=== PATIENT | female | born 1985 | race Caucasian/White ===

== ENCOUNTER 2017-08-23 10:52 | Inpatient (IN) | payer OTHER ==
[2017-08-23] VITALS (9 sets, daily range): BP systolic 109–150; BP diastolic 63–81; PULSE 94–116; RESP 18–20; TEMP 97.2–98.8; O2SAT 97–100
--- NOTE | 2017-08-23 11:23 | PD ---
HPI Chief Complaint Vaginal bleeding Date Seen: Aug 23, 2017 Time Seen: 11:18 Travel History International Travel<30 Days: No Contact w/Intl Traveler<30Days: No Known Affected Area: No History of Present Illness HPI 31-year-old at 33 weeks and 5 days, patient of Dr. Mila Walton complains of heavy vaginal bleeding at home that she noticed in the toilet that occurred spontaneously in a fairly large amounts. Patient states that she discharge quite a few vaginal blood clots into the toilet and that she continue to bleed on a towel and on her bed until [facility] came and patient continued to bleed in the [facility] ambulance. Patient states that she's had normal movement today and denies any complications. She has had 2 prior spontaneous vaginal deliveries and 2 prior abortions. Denies any bleeding during this her last ultrasound was a 3-D ultrasound performed 4 weeks ago with no abnormalities but it was not performed at [facility]. Last 2 ultrasound for was done approximately 20 weeks when she found out the gender. Patient states that she is feeling a little bit of cramping in the lower portion of her belly but otherwise denies pain denies abdominal trauma patient denies use of cocaine or any other illicit drugs. She is a cigarette smoker. Weeks Gestation: 33 (33.5) Para: 2 : 5 : 2 History Past Medical History Medical History: Denies Significant Hx Obstetric History Obstetric History Spontaneous vaginal delivery 2 Past Surgical History Surgical History: No Previous Surgery Family History Family History: Negative Social History Alcohol Use: No Tobacco Use: Yes Substance Abuse: No Review of Systems Except as stated in HPI: all other systems reviewed are Neg Physical Exam Narrative GENERAL: Well-nourished, well-developed patient. SKIN: Warm and dry. HEAD: Normocephalic and atraumatic. EYES: No scleral icterus. No injection or drainage. ENT: No nasal drainage noted. Mucous membranes pink. Airway patent. NECK: Supple, trachea midline. No JVD. CARDIOVASCULAR: Regular rate and rhythm without murmurs, gallops, or rubs. RESPIRATORY: Breath sounds equal bilaterally. No accessory muscle use. BREASTS: Bilateral exam showed no masses , no retractions, no nipple discharge. ABDOMEN/GI: Abdomen soft, non-tender, bowel sounds present, no rebound, no guarding Gravid to [-33] weeks size Fundal Height: [-] Bedside ultrasound reveals a backup transverse lie with a posterior placenta no obvious previa is noted but I cannot rule out a lobe of placenta at the apex of the cervix. Blot clots are seen in the lower segment superior to the cervix. heart rate is approximately 150 GENITOURINARY: External Genitalia: intact and normal in appearance BUS glands: [-Normal] Cervix: [2 cm-] large amount of blood and blood clot in the vagina which was cleared with a small amount of bleeding coming from the cervical os. Dilatation: [-] Effacement: [-] Station: [-] Presentation: [-] Transverse Membranes: [intact] Uterine Contractions: [-Occasional] FHT's: Category: [1-] Baseline: [-] 150 Reactive: [-] Moderate Variability: [-] Moderate Decels: [-] Absent EXTREMITIES: No cyanosis or edema. BACK: Nontender without obvious deformity. No CVA tenderness. NEUROLOGICAL: Awake and alert. Motor and sensory grossly within normal limits. Five out of 5 muscle strength in all muscle groups. Normal speech. Data Data Vital Signs Reviewed: Yes Orders Orders Admit To Inpatient (08/23/17 ) Vital Signs (Adult) .ON ADMISSION (08/23/17 11:08) Activity Oob Ad Soo (08/23/17 11:08) Heart (08/23/17 11:08) ^ Preps (08/23/17 11:08) Ob/Psych Drug Screen, Urine (08/23/17 11:08) Admit To Inpatient (08/23/17 ) Vital Signs (Adult) .ON ADMISSION (08/23/17 11:08) Activity Oob Ad Soo (08/23/17 11:08) Heart (08/23/17 11:08) Urinary Catheter Management NICA.Q8H (08/23/17 11:08) ^ Preps (08/23/17 11:08) Scd / Aris / Foot Pump NICA.QSHIFT (08/23/17 11:08) ^ Ultrasound For Locatio (08/23/17 11:08) Diet Npo (08/23/17 Lunch) Type And Screen (08/23/17 11:08) Complete Blood Count With Diff (08/23/17 11:08) Urinalysis - C+S If Indicated (08/23/17 11:08) [facility] Medical Record Reviewed: Yes Plan 31-year-old who is at 33 weeks 5 days comes in with profuse vaginal bleeding. Suspect previa. Backup transverse lie as noted if bleeding were to continue patient stands that we would perform a section. She understands possibilities of transfusion anesthetic risk risk of surgery with C- section including infection bleeding injury to the bowel the bladder or the ureters. Diagnosis Diagnosis: Primary Impression: 33 weeks gestation of Additional Impression: Vaginal bleeding during , antepartum Agata Escalera MD Aug 23, 2017 11:23
[2017-08-23] MEDS ORDERED: LACTATED RINGER'S 1000 ML INJ 1,000 ML IV ONE (11:25)
[2017-08-23 11:33] LABS: AUTOMATED NEUTROPHIL # 10.3 TH/MM3 (1.8-7.7); BASOPHIL % 0.2 % (0.0-2.0); EOSINOPHIL # 0.2 TH/MM3 (0-0.4); EOSINOPHIL % 1.1 % (0.0-4.0); HEMATOCRIT 34.3 % (35.0-46.0); HEMO FLAGS DIFF FINAL; LYMPH % 22.5 % (9.0-44.0); LYMPHOCYTE # 3.4 TH/MM3 (1.0-4.8); MEAN CORPUSCULAR HEMOGLOBIN 32.5 PG (27.0-34.0); MEAN CORPUSCULAR HGB CONC 33.8 % (32.0-36.0); MONO % 6.7 % (0.0-8.0); NEUT % 69.5 % (16.0-70.0); PLATELET COUNT 281 TH/MM3 (150-450); RED BLOOD COUNT 3.57 MIL/MM3 (4.00-5.30); RED CELL DISTRIBUTION WIDTH 12.7 % (11.6-17.2); WHITE BLOOD COUNT 14.9 TH/MM3 (4.0-11.0)
[2017-08-23] MEDS ORDERED: ceFAZolin INJ 1,000 MG VIAL ONE (11:42)
--- NOTE | 2017-08-23 12:12 | PD.OB.DELI ---
Procedure Note Section Procedure Pre Op Diagnosis: (1) 33 weeks gestation of (2) Vaginal bleeding during , antepartum Post Op Diagnosis: (1) Placenta abruption, delivered, current hospitalization Performed by Agata Escalera Procedure: Primary Low Transverse Sec Indication for delivery: Other (placenta abruption with vaginal bleeding) Previous condition: None Informed consent obtained: For anesthesia, For procedure Confirmed correct: Patient, Procedure, Site Anesthesia: Other (geta) Medication prior to procedure: As documented in eMAR, Antibiotics, IV Urinary catheter: To dependent drainage Sterile preparation: With 10% povidone iodine (Betadine) Position: Supine with wedge to left side Operative Features Skin Incision: Pfannenstiel Uterine Incision: Low transverse w/knife / blunt ext Membranes Ruptured: Artificially, Appearance of fluid (clear) Presentation: Transverse lie Delivery date: Aug 23, 2017 Delivery time: 11:35 Delivery of : Uneventful Infant: Male One Minute : 8 Five Minute : 8 Weight: 2280gm Status of : Viable Placenta delivered: Sent to pathology, Other (80% abruption with entire lower portion of placenta ) Estimated blood loss: 1000cc clot 400cc intraop bleeding Procedure tolerated: Well Maternal Condition: Stable Condition: Stable Agata Escalera MD Aug 23, 2017 12:12
[2017-08-23] MEDS ORDERED: HYDROmorphone HCL PCA 6 MG/30 ML IV SCH (12:15)
[2017-08-23] MEDS ORDERED: ACETAMINOPHEN 1000 MG/100 ML 100 ML IV ONE (12:15)
[2017-08-23] MEDS ORDERED: SODIUM CHLORIDE 0.9% FLUSH 10 ML FLUSH IV FLUSH PRN (12:15)
[2017-08-23] MEDS ORDERED: NALOXONE HCL 0.4 MG/ML AMP IV PUSH PRN (12:15)
[2017-08-23] MEDS ORDERED: ONDANSETRON HCL 4 MG/2 ML VIAL IV PUSH PRN (12:15)
[2017-08-23] MEDS ORDERED: SIMETHICONE 80 MG CHEWABLE TAB PO PRN (12:15)
[2017-08-23] MEDS ORDERED: oxyCODONE/ACETAMINOPHEN 5 MG/325 MG TAB PO PRN (12:15)
[2017-08-23] MEDS ORDERED: OXYTOCIN 30 UNITS-500ML PREMIX 500 ML IV ONE (12:15)
[2017-08-23] MEDS ORDERED: HYDROmorphone HCL PF 2 MG/ML VIAL ONE (12:21)
[2017-08-23] MEDS ORDERED: ceFAZolin 2 GM PREMIX 50 ML IV SCH (12:30)
[2017-08-23 12:31] LABS: BLOOD GAS BASE EXCESS -1.4 mmol/L (-2-2); BLOOD GAS O2 HGB SATURATION 27 % (90-100); CORD BLOOD GAS HCO3 24 mmol/L (21-29); CORD BLOOD GAS PCO2 48 mmHG (34-78); CORD BLOOD GAS PH 7.32 (7.14-7.42); CORD BLOOD GAS PO2 15 mmHG (3.0-40.0); DRAW SITE CORD BLOOD; STAT YES
[2017-08-23] MEDS ORDERED: KETOROLAC TROMETHAMINE 60 MG/2 ML (IM) VIAL IM ONE (12:35)
[2017-08-23] MEDS ORDERED: HYDROmorphone HCL PCA 6 MG/30 ML IV ONE (12:35)
[2017-08-23 12:36] LABS: BLOOD, URINE TRACE (NEG); GLUCOSE,URINE NEG (NEG); KETONE, URINE NEG (NEG); NITRITE,URINE NEG (NEG); PH, URINE 6.5 (5.0-8.5); URINE COLOR YELLOW (YELLW/STRAW)
--- NOTE | 2017-08-23 12:38 | MP ---
cc: KHADRA VU M.D. DATE OF SURGERY: 08/23/2017. PREOPERATIVE DIAGNOSIS: 1. 33 weeks gestation. 2. Vaginal bleeding during . POSTOPERATIVE DIAGNOSIS: Placental abruption, delivered. OPERATIVE PROCEDURE PERFORMED: Primary low transverse section without extension. SURGEON: Khadra Vu MD. ESTIMATED BLOOD LOSS: 1000 cc both prior to the surgery and in blood clots that were seen at the time of surgery plus 500 cc of intraoperative blood loss. ANESTHESIA: General endotracheal anesthesia. COMPLICATIONS: No complications. DRAINS: Cuello catheter to gravity. PATHOLOGY: Placenta. MEDICATIONS: Ancef 2 grams was given intraoperatively. FINDINGS: 1. Normal uterus, tubes and ovaries. 2. Copious amounts of blood and clot material in the lower uterine segment with a 90% abruption of the placenta, which was still attached at the apex posteriorly. 4. Baby was in the back up transverse lie. Apgars were 8 and 8. Male weighing 2280 grams, which is 5 pounds and a 45-second cord clamping delay was performed. 5. Good hemostasis noted after the case. DESCRIPTION OF THE PROCEDURE IN DETAIL: The patient was taken back to the operating room and prepped and draped in the usual sterile fashion and placed in the dorsal supine position with a wedge to her left side. After adequate anesthetic was obtained, a transverse Pfannenstiel's incision was made in the skin and taken through the fascia. The fascia was nicked in the midline and extended bilaterally and taken off the rectus muscles. The muscles were divided in the midline. Anterior peritoneum was entered. A transverse hysterotomy incision was made bluntly, extended and clear amniotic fluid was obtained. The infant was delivered breech as it was in a back up transverse lie and using clockwise and counter-clockwise rotation, the upper extremities were delivered and using fundal pressure the head was flexed and then also delivered. The anatomic pathology assistant and the resuscitation team was present and a 45-second cord clamping delay. the placenta was completely detached by the end of the 45 seconds was noted and the endometrial cavity was curetted with a moist laparotomy sponge. The hysterotomy was repaired using a running locking #1 chromic suture with good hemostasis and closure. Gutters were rendered free of all blood and clot material and the peritoneum was closed with a running suture of 2-0 Vicryl and #1 PDS was used to close the fascia and a subcuticular suture of 3-0 Monocryl and was placed in the skin. The patient tolerated the procedure well. She was taken back to the recovery room in good condition. MD AYSE Whittington/DARLING /12:20 PM /12:33 PM
[2017-08-23 12:54] LABS: BACTERIA, URINE RARE /hpf; COMMENT (UR) CULT NOT INDICATED; CULTURE IF INDICATED CULT NOT INDICATED; SQUAMOUS EPITHELIAL CELL URINE 0-5 /hpf (0-5); WBC, URINE 0-2 /hpf (0-5)
--- NOTE | 2017-08-23 12:56 | RADRPT ---
EXAM DATE/TIME: 08/23/2017 12:17 [place] COMPARISON: No previous studies available for comparison. INDICATIONS : Instrument Count MEDICAL HISTORY : None. SURGICAL HISTORY : None. ENCOUNTER: Initial ACUITY: 1 day PAIN SCORE: Non-responsive. LOCATION: Bilateral abdomen FINDINGS: 2 AP supine views of the abdomen. No metallic foreign body identified. Scattered gas in nondilated sm all bowel. Scattered gas in nondilated colon. Osseous structures within normal limits. No abnormal ab dominal calcification. CONCLUSION: No metallic foreign body identified. Claudio Sharma MD on August 23, 2017 at 12:50 Board Certified Radiologist. This report was verified electronically.
[2017-08-23] MEDS ORDERED: CITRIC ACID-SODIUM CITRATE LIQ 30 ML UDC PO SCH (13:00)
[2017-08-23 15:37] LABS: HEMATOCRIT 34.9 % (35.0-46.0); REVIEW FLAG FINAL
[2017-08-23 16:24] LABS: RUBELLA IGG ANTIBODY 73.2 IU/mL (10.0-500.0); RUBELLA STATUS IMMUNE (IMMUNE)
[2017-08-23] MEDS ORDERED: LACTATED RINGER'S 1000 ML INJ 1,000 ML IV SCH (17:06)
[2017-08-23] MEDS: LACTATED RINGER'S 1000 ML INJ 1,000 ML IV SCH ×3 (18:35→22:54)
[2017-08-23] MEDS: NICOTINE 14 MG/24 HR PATCH T-DERMAL SCH (21:00)
[2017-08-23] MEDS ORDERED: REMOVE OLD PATCH T-DERMAL SCH (21:00)
[2017-08-23] MEDS: SODIUM CHLORIDE 0.9% FLUSH 10 ML FLUSH IV FLUSH SCH (21:00)
[2017-08-23] MEDS: PCA - TOTAL MG DILAUDID DELIVERED PER SHIFT OTHER SCH (22:00)
[2017-08-23] MEDS ORDERED: OXYTOCIN 30 UNITS-500ML PREMIX 500 ML IV PRN (22:15)
[2017-08-24 00:46] VITALS: RESP 20
[2017-08-24] MEDS: IBUPROFEN 600 MG TAB PO PRN ×4 (00:46→22:02)
[2017-08-24] MEDS: oxyCODONE/ACETAMINOPHEN 5 MG/325 MG TAB PO PRN ×6 (00:46→22:02)
[2017-08-24 01:00] VITALS: RESP 20
[2017-08-24 04:15] VITALS: BP 118/60; PULSE 93; RESP 18; TEMP 98
[2017-08-24] MEDS: LACTATED RINGER'S 1000 ML INJ 1,000 ML IV SCH ×2 (07:55→14:35)
[2017-08-24] MEDS: NICOTINE 14 MG/24 HR PATCH T-DERMAL SCH (08:29)
[2017-08-24] MEDS ORDERED: guaiFENesin/DEXTROMETHORPHAN 200 MG/20 MG/10 ML CUP PO PRN (08:30)
[2017-08-24 08:31] VITALS: PULSE 112; TEMP 98.6
--- NOTE | 2017-08-24 08:38 | HHI.OB ---
Subjective Post Operative Day: 1 Remarks Patient is a 31-year-old delivered at 33 weeks and 6 days. Patient is postop day 1 after emergent for placental abruption. Patient's pain is well-controlled except when she coughs. Patient reports eating and drinking without any nausea or vomiting. Patient reports minimal bleeding. Patient has passed gas but no bowel movements. Patient is walking without lower extremity pain or shortness of breath. Patient reports desire for contraception and breast -feeding. Objective Vitals/I&O Vital Signs Date Time Temp Pulse Resp B/P (MAP) Pulse Ox O2 Delivery O2 Flow Rate FiO2 08/24/17 04:15 98.0 93 18 118/60 (79) 08/24/17 01:00 20 08/24/17 00:46 20 08/23/17 22:00 18 08/23/17 19:45 98.2 95 18 109/63 (78) 97 08/23/17 19:45 98.1 08/23/17 15:25 97.8 18 08/23/17 13:54 97.2 08/23/17 13:49 95 20 100 08/23/17 13:49 150/81 (104) 08/23/17 13:45 18 08/23/17 12:36 97.9 94 18 99 08/23/17 11:25 116 08/23/17 11:19 98.8 08/23/17 11:15 113 08/23/17 11:10 116 Result Diagram: 08/23/17 1500 Objective Remarks GENERAL: Well-nourished, well-developed patient. CARDIOVASCULAR: Regular rate and rhythm without murmurs, gallops, or rubs. RESPIRATORY: Breath sounds equal bilaterally. No accessory muscle use. ABDOMEN/GI: Abdomen soft, non-tender, bowel sounds present. Incision: Clean, dry and intact. Fundus: Firm, non-tender at umbilicus. GENITOURINARY: Light to moderate bleeding. EXTREMITIES: No cyanosis or edema, non-tender, without signs of DVT. Medications and IVs Current Medications Medications (Trade) Dose Ordered Sig/Etta Route Start Time Stop Time Status Last Admin Lactated Ringer's 1,000 ml @ 150 mls/hr Q6H40M IV 08/23/17 11:55 Cefazolin Sodium/ Dextrose 50 ml @ 100 mls/hr HAND FORMER IV 08/23/17 12:30 08/27/17 12:29 (Bicitra Liq) 30 ml HAND FORMER PO 08/23/17 13:00 08/27/17 12:59 Lactated Ringer's 1,000 ml @ 100 mls/hr Q10H IV 08/23/17 17:06 08/24/17 13:05 08/23/17 20:30 Oxytocin 500 ml @ 100 mls/hr UNSCH X1 PRN IV 08/23/17 22:15 08/24/17 22:14 (NS Flush) 2 ml BID IV FLUSH 08/23/17 21:00 (NS Flush) 2 ml UNSCH PRN IV FLUSH 08/23/17 12:15 (Mylicon Chew) 80 mg QID PRN PO 08/23/17 12:15 (Motrin) 600 mg Q6H PRN PO 08/23/17 12:15 08/24/17 06:36 (Percocet 5-325 Mg) 1 tab Q4H PRN PO 08/23/17 12:15 (Percocet 5-325 Mg) 2 tab Q4H PRN PO 08/23/17 12:15 08/24/17 08:27 (M-M-R Ii Inj) 0.5 ml ONCE ONCE SQ 08/24/17 16:00 08/24/17 16:01 (Boostrix Inj) 0.5 ml ONCE ONCE IM 08/24/17 16:00 08/24/17 16:01 (Zofran Inj) 4 mg Q6H PRN IV PUSH 08/23/17 12:15 (Narcan Inj) 0.4 mg UNSCH PRN IV PUSH 08/23/17 12:15 (Dilaudid INSEAM LEVELER Inj) 6 mg UNSCH IV 08/23/17 12:15 08/23/17 13:45 INSEAM LEVELER Dosage Infused (Pha) 1 Q8HR OTHER 08/23/17 14:00 08/23/17 22:00 (Habitrol 14 Mg Patch.24 Hr) 1 patch DAILY T-DERMAL 08/23/17 21:00 Miscellaneous Information 1 HS T-DERMAL 08/23/17 21:00 (Robitussin Dm 200-20 Mg/10 ml Liq) 10 ml Q4H PRN PO 08/24/17 08:30 UNV Assessment/Plan Assessment and Plan Patient is a 31-year-old delivered at 33 weeks and 6 days. Patient is postop day 1 after emergent for placental abruption. Patient was counseled to do 6 weeks of pelvic rest. Patient was counseled to follow up in 1 and 6 weeks. Patient requested follow-up and contraception. 1. routine postop management --AF VSS --Continue routine care --Motrin and Percocet when necessary for pain --Encourage OOB --Pelvic rest for 6 weeks will need follow-up appointment at that time. --Contraception: Depo-Provera --Anticipate discharge in 1-2 days 2. cough --Guaifenesin and dextromethorphan by mouth when necessary --Tessalon Perles if ineffective d/w Dr. Escalera Discharge Planning --Anticipate discharge in 1-2 days Sam Villa MD R2 Aug 24, 2017 08:38
[2017-08-24 08:45] VITALS: RESP 18
[2017-08-24] MEDS: SODIUM CHLORIDE 0.9% FLUSH 10 ML FLUSH IV FLUSH SCH (09:00)
[2017-08-24] MEDS ORDERED: medroxyPROGESTERone ACETATE SUSP 150 MG/ML SYRINGE IM ONE (09:15)
[2017-08-24 11:54] LABS: HEMATOCRIT 31.8 % (35.0-46.0); MEAN CELL VOLUME 98.3 FL (80.0-100.0); MEAN CORPUSCULAR HEMOGLOBIN 32.5 PG (27.0-34.0); PLATELET COUNT 232 TH/MM3 (150-450); RED BLOOD COUNT 3.24 MIL/MM3 (4.00-5.30); RED CELL DISTRIBUTION WIDTH 12.7 % (11.6-17.2); REVIEW FLAG FINAL
[2017-08-24] MEDS: PCA - TOTAL MG DILAUDID DELIVERED PER SHIFT OTHER SCH (14:00)
[2017-08-24] MEDS: RESP: IPRATROPIUM 0.5 MG/2.5 ML NEB NEB PRN ×2 (14:53→20:15)
[2017-08-24] MEDS ORDERED: DIPHTH/TETANUS/ACEL PERTUSSIS (BOOSTER) 0.5 ML VIAL/PFS IM ONE (16:00)
[2017-08-24] MEDS ORDERED: MEASLES, MUMPS, RUBELLA VACCINE 0.5 ML VIAL SQ ONE (16:00)
[2017-08-24 20:00] VITALS: BP 124/54; PULSE 117; RESP 22; TEMP 98.2
[2017-08-25] MEDS: oxyCODONE/ACETAMINOPHEN 5 MG/325 MG TAB PO PRN ×2 (02:50→09:46)
[2017-08-25 08:00] VITALS: BP 115/64; PULSE 106; RESP 16; TEMP 98.3; O2SAT 98
[2017-08-25] MEDS: RESP: IPRATROPIUM 0.5 MG/2.5 ML NEB NEB PRN (08:03)
[2017-08-25] MEDS: PCA - TOTAL MG DILAUDID DELIVERED PER SHIFT OTHER SCH (08:17)
--- NOTE | 2017-08-25 09:20 | HHI.OB ---
Subjective Post Operative Day: 2 Remarks Patient is a 31-year-old delivered at 33 weeks and 6 days. Patient is postop day 1 after emergent for placental abruption. Patient's pain is well-controlled. Patient reports eating and drinking without any nausea or vomiting. She does report some nausea with breathing treatments and Percocet. She reports that the breathing treatments help with her cough. Patient reports minimal bleeding. Patient has passed gas and bowel movements. Patient is walking without lower extremity pain or shortness of breath. Patient reports desire for contraception. Objective Vitals/I&O Vital Signs Date Time Temp Pulse Resp B/P (MAP) Pulse Ox O2 Delivery O2 Flow Rate FiO2 08/25/17 08:00 98.3 106 16 115/64 (81) 98 08/24/17 20:00 98.2 117 22 124/54 (77) Result Diagram: 08/24/17 1049 Objective Remarks GENERAL: Well-nourished, well-developed patient. CARDIOVASCULAR: Regular rate and rhythm without murmurs, gallops, or rubs. RESPIRATORY: Breath sounds equal bilaterally. No accessory muscle use. ABDOMEN/GI: Abdomen soft, non-tender, bowel sounds present. Incision: Clean, dry and intact. Fundus: Firm, non-tender at umbilicus. GENITOURINARY: Light to moderate bleeding. EXTREMITIES: No cyanosis or edema, non-tender, without signs of DVT. Medications and IVs Current Medications Medications (Trade) Dose Ordered Sig/Etta Route Start Time Stop Time Status Last Admin Lactated Ringer's 1,000 ml @ 150 mls/hr Q6H40M IV 08/23/17 11:55 Cefazolin Sodium/ Dextrose 50 ml @ 100 mls/hr TECHNICAL OPERATIONS MANAGER IV 08/23/17 12:30 08/27/17 12:29 (Bicitra Liq) 30 ml TECHNICAL OPERATIONS MANAGER PO 08/23/17 13:00 08/27/17 12:59 (NS Flush) 2 ml BID IV FLUSH 08/23/17 21:00 (NS Flush) 2 ml UNSCH PRN IV FLUSH 08/23/17 12:15 (Mylicon Chew) 80 mg QID PRN PO 08/23/17 12:15 (Motrin) 600 mg Q6H PRN PO 08/23/17 12:15 08/24/17 22:02 (Percocet 5-325 Mg) 1 tab Q4H PRN PO 08/23/17 12:15 (Percocet 5-325 Mg) 2 tab Q4H PRN PO 08/23/17 12:15 08/25/17 02:50 (Zofran Inj) 4 mg Q6H PRN IV PUSH 08/23/17 12:15 (Narcan Inj) 0.4 mg UNSCH PRN IV PUSH 08/23/17 12:15 (Dilaudid PLASTER FOREMAN Inj) 6 mg UNSCH IV 08/23/17 12:15 08/23/17 13:45 PLASTER FOREMAN Dosage Infused (Pha) 1 Q8HR OTHER 08/23/17 14:00 08/23/17 22:00 (Habitrol 14 Mg Patch.24 Hr) 1 patch DAILY T-DERMAL 08/23/17 21:00 Miscellaneous Information 1 HS T-DERMAL 08/23/17 21:00 (Robitussin Dm 200-20 Mg/10 ml Liq) 10 ml Q4H PRN PO 08/24/17 08:30 08/24/17 11:09 (Atrovent Neb) 0.5 mg Q4HR NEB PRN NEB 08/24/17 14:30 08/25/17 08:03 Assessment/Plan Assessment and Plan Patient is a 31-year-old delivered at 33 weeks and 6 days. Patient is postop day 1 after emergent for placental abruption. Patient was counseled to do 6 weeks of pelvic rest. Patient was counseled to follow up in 1 and 6 weeks. Patient requested follow-up and contraception. 1. routine postop management --AF VSS --Continue routine care --Motrin and Percocet when necessary for pain --Encourage OOB --Pelvic rest for 6 weeks will need follow-up appointment at that time. Incision check in one week. --Contraception: Depo-Provera --Anticipate discharge today or tomorrow 2. cough --Guaifenesin and dextromethorphan by mouth when necessary --Tessalon Perles if ineffective --Breathing treatments when necessary --Follow-up with outpatient provider for diagnosis and treatment of likely asthma d/w Dr. Arroyo Discharge Planning --Anticipate discharge today or tomorrow Sam Villa MD R2 Aug 25, 2017 09:20
[2017-08-25] MEDS: SODIUM CHLORIDE 0.9% FLUSH 10 ML FLUSH IV FLUSH SCH (09:21)
[2017-08-25] MEDS: NICOTINE 14 MG/24 HR PATCH T-DERMAL SCH (09:22)
[2017-08-25] MEDS ORDERED: DEXT10SY2 PO (09:22)
[2017-08-25] MEDS ORDERED: IBUP-232 PO (09:22)
[2017-08-25] MEDS ORDERED: Ipratropium Bromide NEB (09:22)
[2017-08-25] MEDS ORDERED: OXYC1TAB63 PO (09:22)
[2017-08-25] MEDS ORDERED: NICO14DI23 T-DERMAL (09:22)
--- NOTE | 2017-08-25 09:28 | HHI.DCPOC ---
Discharge Care Plan Diagnosis: (1) S/P (2) Placenta abruption, delivered, current hospitalization Report Symptoms to Your Doctor -Temperature above 100.5 degrees -Redness, of incision or excessive or foul smelling drainage -Unusual pain or calf pain -Increased vaginal bleeding -Painful or difficulty urinating -Feelings of extreme sadness or anxiety after 2 weeks Goals to Promote Your Health * To prevent worsening of your condition and complications, please follow up with your doctor. * To maintain your health at the optimal level, please follow medical recommendations. Directions to Meet Your Goals Take your medications as prescribed Follow your dietary instruction Follow activity as directed Ensure plenty of rest for recovery Drink fluids for hydration Keep your appointments as scheduled Take your immunizations and boosters as scheduled If your symptoms worsen call your PCP, if no PCP go to Urgent Care Center or Emergency Room Smoking is Dangerous to Your Health. Avoid second hand smoke Call the 24-hour crisis hotline for domestic abuse at Sam Villa MD R2 Aug 25, 2017 09:28
[2017-08-25] MEDS ORDERED: medroxyPROGESTERone ACETATE SUSP 150 MG/ML SYRINGE IM ONE (09:30)
[2017-08-25] MEDS: IBUPROFEN 600 MG TAB PO PRN (09:46)
[2017-08-25] MEDS: LACTATED RINGER'S 1000 ML INJ 1,000 ML IV SCH (10:35)
== END 2017-08-25 12:11 | disposition home or self-care (01) | DRG 766 ==
LOC: HOBED 10:52 → H2EB 11:13 → H1EA 15:04
PROVIDERS: ADMIT Obstetrics & Gynecology Obstetrics; ATTEND Obstetrics & Gynecology Obstetrics
PROC: 10D00Z1 Extraction of Products of Conception, Low, Open Approach (ICD-10-PCS; principal; 2017-08-23)
DX: O45.93 Premature separation of placenta, unspecified, third trimester (principal); F17.210 Nicotine dependence, cigarettes, uncomplicated; Z37.0 Single live birth; O32.2XX0 Maternal care for transverse and oblique lie, not applicable or unspecified; O99.334 Smoking (tobacco) complicating childbirth; Z3A.33 33 weeks gestation of pregnancy; O99.52 Diseases of the respiratory system complicating childbirth; J45.909 Unspecified asthma, uncomplicated; N93.9 Abnormal uterine and vaginal bleeding, unspecified
CPT/HCPCS: 74000; 80074; 80307; 81001; 82805; 85014; 85018; 85025; 85027; 85461; 86592; 86703; 86762; 86850; 86900; 86901; 88307; 90384; 94640; 94664; G0481; J0131; J0690; J1050; J1170; J1885; J2790; J7120; J7644

== ENCOUNTER 2017-10-19 16:40 | Emergency (ER) | payer OTHER ==
[~2017-10-19] VITALS: Ht 157.5 cm; Wt 70.0 kg
[~2017-10-19 16:40] MED LIST: DEXT10SY2 PO; IBUP-232 PO; Ipratropium Bromide NEB; NICO14DI23 T-DERMAL; OXYC1TAB63 PO
[2017-10-19 16:42] VITALS: BP 156/83; PULSE 96; RESP 16; TEMP 98; O2SAT 100
[2017-10-19 17:16] LABS: AUTOMATED NEUTROPHIL # 6.3 TH/MM3 (1.8-7.7); BASOPHIL % 0.4 % (0.0-2.0); EOSINOPHIL # 0.2 TH/MM3 (0-0.4); EOSINOPHIL % 1.8 % (0.0-4.0); HEMATOCRIT 41.9 % (35.0-46.0); LYMPH % 39.2 % (9.0-44.0); LYMPHOCYTE # 4.6 TH/MM3 (1.0-4.8); MEAN CORPUSCULAR HEMOGLOBIN 30.7 PG (27.0-34.0); MEAN CORPUSCULAR HGB CONC 33.4 % (32.0-36.0); MEAN PLATELET VOLUME 7.8 FL (7.0-11.0); MONOCYTE # 0.6 TH/MM3 (0-0.9); NEUT % 53.6 % (16.0-70.0); PLATELET COUNT 322 TH/MM3 (150-450); RED BLOOD COUNT 4.55 MIL/MM3 (4.00-5.30); RED CELL DISTRIBUTION WIDTH 14.1 % (11.6-17.2); WHITE BLOOD COUNT 11.8 TH/MM3 (4.0-11.0)
[2017-10-19 17:18] LABS: BILIRUBIN, URINE NEG (NEG); BLOOD, URINE MOD (NEG); GLUCOSE,URINE NEG (NEG); KETONE, URINE NEG (NEG); MUCUS URINE FEW /lpf (OCC); NITRITE,URINE NEG (NEG); PH, URINE 6.5 (5.0-8.5); SQUAMOUS EPITHELIAL CELL URINE 1 /hpf (0-5); URINE COLOR YELLOW (YELLW/STRAW); URINE LEUKOCYTE ESTERASE NEG (NEG)
--- NOTE | 2017-10-19 17:41 | PD ---
HPI Chief Complaint: Registered Midwife Problem/Complaint Time Seen by Provider: 17:13 Travel History International Travel<30 days: No Contact w/Intl Traveler<30days: No Traveled to known affect area: No History of Present Illness HPI 31-year-old female complains of pelvic pain and vaginal bleeding. Patient status post emergency August 23, 2017 for placental abruption. Patient delivered at 33 weeks and 6 days. Patient was discharged from the hospital. Patient had routine follow with her OB physician subsequently. Patient states that she had persistent vaginal bleeding since . Patient states that she soaked one pad every 23 hours. Patient complains of cramping low abdominal and pelvic area. Patient denies any headache. She denies any chest pain or shortness of breath. Patient denies any fever chills. Patient denies any dysuria or frequency. PFSH Past Medical History ?: Not Social History Alcohol Use: No Tobacco Use: Yes Allergies-Medications (Allergen,Severity, Reaction): Coded Allergies: No Known Allergies (Unverified , 10/19/17) Reported Meds & Prescriptions Reported Meds & Active Scripts Active Dextromethorphan/Guaifene 10-100 mg/5Ml (Dextromethorphan-Guaifenesin) 100 Mg- 10 Mg/5 Ml Syp 10 Ml PO Q4H PRN Oxycodone-Acetaminophen 5-325 (Oxycodone HCl/Acetaminophen) 5 Mg-325 Mg Tablet 1 Tab PO Q4H PRN Ibuprofen 600 Mg Tab 600 Mg PO Q6H PRN Eq Nicotine (Nicotine) 14 Mg/24 Hour Dis 1 Patch T-DERMAL DAILY [Ipratropium [place]] 0.5 MG/2.5 ML Nebu 0.5 Mg NEB Q4HR NEB PRN Review of Systems General / Constitutional: No: Fever Eyes: No: Visual changes HENT: No: Headaches Cardiovascular: No: Chest Pain or Discomfort Respiratory: No: Shortness of Breath Gastrointestinal: No: Abdominal Pain Genitourinary: Positive: Pelvic Pain, Vaginal Bleeding, No: Dysuria Musculoskeletal: No: Pain Skin: No Rash Neurologic: No: Weakness Psychiatric: No: Depression Endocrine: No: Polydipsia Hematologic/Lymphatic: No: Easy Bruising Physical Exam Narrative GENERAL: Well-nourished, well-developed patient. SKIN: Focused skin assessment warm/dry. HEAD: Normocephalic. EYES: No scleral icterus. No injection or drainage. NECK: Supple, trachea midline. No JVD or lymphadenopathy. CARDIOVASCULAR: Regular rate and rhythm without murmurs, gallops, or rubs. RESPIRATORY: Breath sounds equal bilaterally. No accessory muscle use. GASTROINTESTINAL: Abdomen soft, non-tender, nondistended. MUSCULOSKELETAL: No cyanosis, or edema. BACK: Nontender without obvious deformity. No CVA tenderness. OR MANAGER exam: Small amount of blood in the vaginal vault. Uterus is enlarged with moderate tenderness on palpation. No adnexal masses or tenderness. Data Data Last Documented VS Vital Signs Date Time Temp Pulse Resp B/P (MAP) Pulse Ox O2 Delivery O2 Flow Rate FiO2 10/19/17 16:42 98.0 96 16 156/83 (107) 100 Orders Orders Complete Blood Count With Diff (10/19/17 16:46) Basic Metabolic Panel (Bmp) (10/19/17 16:46) Urinalysis - C+S If Indicated (10/19/17 16:46) Ed Urine Pregnancytest Poc (10/19/17 16:46) Us Pelvis Comp W Transvaginal (10/19/17 17:35) Labs Laboratory Tests Test 10/19/17 16:57 10/19/17 16:58 White Blood Count 11.8 TH/MM3 Red Blood Count 4.55 MIL/MM3 Hemoglobin 14.0 GM/DL Hematocrit 41.9 % Mean Corpuscular Volume 92.0 FL Mean Corpuscular Hemoglobin 30.7 PG Mean Corpuscular Hemoglobin Concent 33.4 % Red Cell Distribution Width 14.1 % Platelet Count 322 TH/MM3 Mean Platelet Volume 7.8 FL Neutrophils (%) (Auto) 53.6 % Lymphocytes (%) (Auto) 39.2 % Monocytes (%) (Auto) 5.0 % Eosinophils (%) (Auto) 1.8 % Basophils (%) (Auto) 0.4 % Neutrophils # (Auto) 6.3 TH/MM3 Lymphocytes # (Auto) 4.6 TH/MM3 Monocytes # (Auto) 0.6 TH/MM3 Eosinophils # (Auto) 0.2 TH/MM3 Basophils # (Auto) 0.0 TH/MM3 CBC Comment DIFF FINAL Differential Comment Blood Urea Nitrogen 11 MG/DL Creatinine 0.87 MG/DL Random Glucose 92 MG/DL Calcium Level 9.1 MG/DL Sodium Level 138 MEQ/L Potassium Level 3.6 MEQ/L Chloride Level 106 MEQ/L Carbon Dioxide Level 24.7 MEQ/L Anion Gap 7 MEQ/L Estimat Glomerular Filtration Rate 75 ML/MIN Urine Color YELLOW Urine Turbidity CLEAR Urine pH 6.5 Urine Specific Lenora 1.011 Urine Protein NEG mg/dL Urine Glucose (UA) NEG mg/dL Urine Ketones NEG mg/dL Urine Occult Blood MOD Urine Nitrite NEG Urine Bilirubin NEG Urine Urobilinogen LESS THAN 2.0 MG/DL Urine Leukocyte Esterase NEG Urine RBC 19 /hpf Urine WBC LESS THAN 1 /hpf Urine Squamous Epithelial Cells 1 /hpf Urine Mucus FEW /lpf Microscopic Urinalysis Comment CULT NOT INDICATED MDM Medical Decision Making Medical Screen Exam Complete: Yes Emergency Medical Condition: Yes Interpretation(s) Last Impressions Pelvis Ultrasound 10/19/17 4043 Signed Impressions: Service Date/Time: Thursday, October 19, 2017 17:56 - CONCLUSION: 1. No acute abnormality. Baljeet Pabon Jr., MD 1917 p.m. CBC within normal limits. BMP within normal limit. UA positive for RBC. Differential Diagnosis Differential diagnosis including abnormal uterine bleeding, retained products of conception, threatened AB, incomplete AB, completed AB, ectopic . Narrative Course 31-year-old female with persistent vaginal bleeding and pelvic pain status post August 23, 2017. Diagnosis Primary Impression: Abnormal uterine bleeding Patient Instructions: General Instructions Additional Instructions: Multivitamin with iron as directed. Provera as directed. Follow-up with instrument inspector. Med/Other Pt SpecificInfo: Prescription(s) given Scripts Medroxyprogesterone Acetate (Provera) 10 Mg Tab 10 MG PO DAILY for Uterine bleeding, #10 TAB 0 Refills Start day 16 Prov: Jhonny Barker MD 10/19/17 Disposition: 01 DISCHARGE HOME Condition: Stable Jhonny Barker MD Oct 19, 2017 17:41
[2017-10-19 17:46] LABS: BICARBONATE 24.7 MEQ/L (21.0-32.0); CALCIUM 9.1 MG/DL (8.5-10.1); CREATININE 0.87 MG/DL (0.50-1.00)
--- NOTE | 2017-10-19 19:06 | RADRPT ---
EXAM DATE/TIME: 10/19/2017 17:56 [place] COMPARISON: No previous studies available for comparison. INDICATIONS : Pelvic pain and bleeding post c-sec 2 wks ago. MEDICAL HISTORY : . SURGICAL HISTORY : section. ENCOUNTER: Initial ACUITY: 2 weeks PAIN SCORE: 6/10 LOCATION: Bilateral pelvis MEASUREMENTS: UTERUS: 10.2 x 6.7 x 5.6 cm ENDOMETRIAL STRIPE: 5 mm RIGHT OVARY: 3.7 x 2.4 x 1.9 cm LEFT OVARY: 3.2 x 2.5 x 1.7 cm FINDINGS: UTERUS: Retroverted uterus. The myometrium has homogeneous echotexture without mass.Trace amount of free flui d within the endocervical canal. No retained products of conception appreciated. RIGHT OVARY: Ovary contains no mass or significant cystic lesion. LEFT OVARY: Ovary contains no mass or significant cystic lesion.Small simple cyst noted. There is a dominant simp le cyst measuring 1.6 cm. MISCELLANEOUS: No free fluid. CONCLUSION: 1. No acute abnormality. Baljeet Pabon Jr., MD on October 19, 2017 at 19:00 Board Certified Radiologist. This report was verified electronically.
[2017-10-19] MEDS ORDERED: PROV10TA PO (19:23)
== END 2017-10-19 19:45 | disposition home or self-care (01) ==
LOC: NEPD 16:40
DX: N93.9 Abnormal uterine and vaginal bleeding, unspecified (principal); R10.2 Pelvic and perineal pain; Z72.0 Tobacco use
CPT/HCPCS: 76830; 76856; 80048; 81001; 84703; 85025; 99284